=== PATIENT | male | born 1950 | race Caucasian/White ===

== ENCOUNTER 2019-08-11 01:23 | Inpatient (IN) ==
[2019-08-11] MEDS ORDERED: Naloxone 0.4 MG/ML INJ IVP PRN (03:42)
[2019-08-11] MEDS ORDERED: Acetaminophen 325 MG TABLET PO PRN (03:42)
[2019-08-11] MEDS ORDERED: *HR* Promethazine 25 MG/ML VIAL IVP PRN (03:42)
[2019-08-11] MEDS: 0.9 % Sodium Chloride 1,000 ML IVC SCH ×3 (04:49→19:51)
[2019-08-11 05:01] LABS: Bilirubin,Urine Negative (Negative); Blood,Urine Negative (Negative); Clarity,Urine Clear (Clear); Color,Urine Colorless (Yellow); Glucose,Urine (UA) Normal (Normal); Ketones,Urine Negative (Negative); Leukocyte Esterase,Urine Negative (Negative); Nitrite,Urine Negative (Negative); PH,Urine 5.5 pH Units (5.0-8.0); Protein,Urine Negative (Neg-Trace); Specific Gravity,Urine 1.015 (1.010-1.025); Urobilinogen,Urine Normal (Normal)
[2019-08-11 05:04] LABS: Basophils % 0.2 %; Hematocrit 49.9 % (37.5-50.1); Hemoglobin 14.5 g/dL (12.9-16.9); INR 1.7; Immature Granulocytes % 0.5 % (0-4); Lymphocytes # 0.3 K/mcL (0.6-4.6); Lymphocytes % 2.3 %; Mean Corpuscular HGB Conc 29.1 g/dL (31.6-35.5); Mean Corpuscular Hemoglobin 23.1 pg (28.0-33.3); Mean Corpuscular Volume 79.5 fL (83.0-100.0); Mean Platelet Volume 8.4 fL (9.4-12.4); Monocytes # 0.3 K/mcL (0.0-1.3); Platelet Count 420 K/mcL (140-400); Prothrombin Time 19.1 Seconds (9.4-12.1); Red Blood Count 6.28 M/mcL (4.19-5.50); White Blood Count 12.7 K/mcL (4.3-11.1)
[2019-08-11 05:20] LABS: Alanine Aminotransferase 58 Units/L (7-52); Albumin 3.3 g/dL (3.5-5.7); Albumin/Globulin Ratio 0.9 (1.1-2.2); Alkaline Phosphatase 124 Units/L (34-104); Aspartate Amino Transferase 49 Units/L (13-39); BUN/Creatinine Ratio 33 (6-26); Bilirubin,Total 0.8 mg/dL (0.3-1.0); Blood Urea Nitrogen 46 mg/dL (8-23); Calcium 10.7 mg/dL (8.6-10.3); Carbon Dioxide 19 mEq/L (23-29); Chloride 102 mEq/L (98-107); Globulin 3.6 g/dL (2.4-3.5); Glucose 113 mg/dL (70-105); Magnesium 2.3 mg/dL (1.6-2.6); Osmolality,Calculated 293 (280-300); Phosphorous 4.8 mg/dL (2.7-4.5); Potassium 4.8 mEq/L (3.5-5.1); Sodium 135 mEq/L (136-145); Total Protein 6.9 g/dL (6.4-8.9); eGFR For African Americans > 60 (> 60); eGFR For Non-African Americans 51 (> 60)
[2019-08-11 05:40] LABS: Thyroid Stimulating Hormone 3.809 mcIU/mL (0.340-5.600)
[2019-08-11 05:46] LABS: Ferritin 65 ng/mL (20-250)
[2019-08-11 06:11] LABS: % Iron Saturation 7 % (20-55); Iron 23 mcg/dL (65-175); Transferrin 234 mg/dL (203-362)
[2019-08-11] MEDS: Azithromycin 500 MG in 0.9 % Sodium Chloride 250 ML IVPB SCH (07:37)
[2019-08-11] MEDS: MethylPREDNISolone 40 MG/ML VIAL IVP SCH ×3 (07:37→23:00)
[2019-08-11] MEDS: cefTRIAXone 1,000 MG in 0.9 % Sodium Chloride Mini Bag 100 ML IVPB SCH (17:42)
[2019-08-11] MEDS: *HR* Heparin 5,000 UNIT/ML VIAL SQ SCH (17:42)
[2019-08-12 03:33] LABS: Hematocrit 45.2 % (37.5-50.1); Hemoglobin 13.4 g/dL (12.9-16.9); Mean Corpuscular HGB Conc 29.6 g/dL (31.6-35.5); Mean Corpuscular Hemoglobin 22.7 pg (28.0-33.3); Mean Corpuscular Volume 76.6 fL (83.0-100.0); Mean Platelet Volume 8.3 fL (9.4-12.4); Platelet Count 360 K/mcL (140-400); Red Cell Distribution Width 20.9 % (11.5-14.5); White Blood Count 13.7 K/mcL (4.3-11.1)
[2019-08-12 03:52] LABS: Calcium 9.7 mg/dL (8.6-10.3); Potassium 4.5 mEq/L (3.5-5.1)
[2019-08-12] MEDS: 0.9 % Sodium Chloride 1,000 ML IVC SCH (03:55)
[2019-08-12] MEDS: *HR* Heparin 5,000 UNIT/ML VIAL SQ SCH ×2 (05:49→17:38)
[2019-08-12] MEDS: MethylPREDNISolone 40 MG/ML VIAL IVP SCH ×2 (09:15→17:38)
[2019-08-12] MEDS: Azithromycin 500 MG in 0.9 % Sodium Chloride 250 ML IVPB SCH (09:15)
[2019-08-12] MEDS: cefTRIAXone 1,000 MG in 0.9 % Sodium Chloride Mini Bag 100 ML IVPB SCH (17:38)
[2019-08-13 02:44] LABS: Hemoglobin 12.6 g/dL (12.9-16.9)
[2019-08-13 02:46] LABS: Hematocrit 42.8 % (37.5-50.1); Mean Corpuscular HGB Conc 29.4 g/dL (31.6-35.5); Mean Corpuscular Hemoglobin 23.2 pg (28.0-33.3); Mean Corpuscular Volume 78.7 fL (83.0-100.0); Mean Platelet Volume 8.2 fL (9.4-12.4); Platelet Count 298 K/mcL (140-400); Red Blood Count 5.44 M/mcL (4.19-5.50); Red Cell Distribution Width 20.9 % (11.5-14.5); White Blood Count 14.4 K/mcL (4.3-11.1)
[2019-08-13] MEDS: Levothyroxine 25 MCG TABLET PO SCH (06:29)
[2019-08-13] MEDS: MethylPREDNISolone 40 MG/ML VIAL IVP SCH ×2 (06:29→17:15)
[2019-08-13] MEDS: *HR* Heparin 5,000 UNIT/ML VIAL SQ SCH ×2 (06:29→17:15)
[2019-08-13] MEDS ORDERED: Gadolinium Contrast Agent (WT Based) IV PRN (08:04)
[2019-08-13] MEDS: Azithromycin 250 MG TABLET PO SCH (08:09)
[2019-08-13] MEDS: cefTRIAXone 1,000 MG in 0.9 % Sodium Chloride Mini Bag 100 ML IVPB SCH (17:16)
[2019-08-14 01:43] LABS: Basophils % 0.1 %; Monocytes % 7.1 %; Nucleated Red Blood Cells 0.1 /100 WBC (0)
[2019-08-14 01:44] LABS: Hematocrit 42.7 % (37.5-50.1); Hemoglobin 12.5 g/dL (12.9-16.9); Immature Granulocytes % 0.6 % (0-4); Lymphocytes # 0.5 K/mcL (0.6-4.6); Lymphocytes % 3.3 %; Mean Corpuscular HGB Conc 29.3 g/dL (31.6-35.5); Mean Corpuscular Hemoglobin 23.2 pg (28.0-33.3); Mean Corpuscular Volume 79.4 fL (83.0-100.0); Mean Platelet Volume 9.1 fL (9.4-12.4); Neutrophils # 12.6 K/mcL (1.6-8.9); Platelet Count 248 K/mcL (140-400); Red Blood Count 5.38 M/mcL (4.19-5.50); Red Cell Distribution Width 20.7 % (11.5-14.5); Segmented Neutrophils % 88.9 %; White Blood Count 14.2 K/mcL (4.3-11.1)
[2019-08-14 02:05] LABS: Calcium 9.8 mg/dL (8.6-10.3); Potassium 5.2 mEq/L (3.5-5.1)
[2019-08-14] MEDS: MethylPREDNISolone 40 MG/ML VIAL IVP SCH (06:17)
[2019-08-14] MEDS: *HR* Heparin 5,000 UNIT/ML VIAL SQ SCH ×2 (06:17→17:25)
[2019-08-14] MEDS: Levothyroxine 25 MCG TABLET PO SCH (06:17)
[2019-08-14] MEDS: Dexamethasone 4 MG/ML VIAL IVP SCH ×3 (09:18→20:29)
[2019-08-14] MEDS: Azithromycin 250 MG TABLET PO SCH (09:18)
[2019-08-14 14:35] LABS: Potassium 4.8 mEq/L (3.5-5.1)
[2019-08-14] MEDS: cefTRIAXone 1,000 MG in 0.9 % Sodium Chloride Mini Bag 100 ML IVPB SCH (17:25)
[2019-08-15 02:19] LABS: Basophils % 0.1 %; Eosinophils % 0.1 %; Hemoglobin 12.5 g/dL (12.9-16.9); Immature Granulocytes % 0.5 % (0-4); Lymphocytes # 0.5 K/mcL (0.6-4.6); Mean Corpuscular HGB Conc 29.1 g/dL (31.6-35.5); Mean Corpuscular Hemoglobin 23.1 pg (28.0-33.3); Mean Corpuscular Volume 79.5 fL (83.0-100.0); Mean Platelet Volume 9.2 fL (9.4-12.4); Monocytes # 1.4 K/mcL (0.0-1.3); Neutrophils # 13.5 K/mcL (1.6-8.9); Nucleated Red Blood Cells 0.2 /100 WBC (0); Platelet Count 210 K/mcL (140-400); Red Blood Count 5.41 M/mcL (4.19-5.50); Red Cell Distribution Width 20.9 % (11.5-14.5); Segmented Neutrophils % 87.3 %; White Blood Count 15.4 K/mcL (4.3-11.1)
[2019-08-15 02:22] LABS: INR 1.5; Prothrombin Time 17.3 Seconds (9.4-12.1)
[2019-08-15 02:38] LABS: BUN/Creatinine Ratio 50 (6-26); Blood Urea Nitrogen 67 mg/dL (8-23); Calcium 9.8 mg/dL (8.6-10.3); Carbon Dioxide 22 mEq/L (23-29); Chloride 110 mEq/L (98-107); Glucose 142 mg/dL (70-105); Osmolality,Calculated 312 (280-300); Potassium 4.8 mEq/L (3.5-5.1); Sodium 140 mEq/L (136-145); eGFR For African Americans > 60 (> 60); eGFR For Non-African Americans 53 (> 60)
[2019-08-15] MEDS: Dexamethasone 4 MG/ML VIAL IVP SCH ×4 (03:19→22:00)
[2019-08-15] MEDS: *HR* Heparin 5,000 UNIT/ML VIAL SQ SCH ×2 (06:35→17:57)
[2019-08-15] MEDS: Levothyroxine 25 MCG TABLET PO SCH (06:35)
[2019-08-15] MEDS ORDERED: Acetaminophen IV 1,000 MG/100 ML BAG IVPB ONE (08:35)
[2019-08-15] MEDS ORDERED: Ondansetron 4 MG/2 ML VIAL IVP ONE (08:35)
[2019-08-15] MEDS ORDERED: Ringers Solution, Lactated 1,000 ML IVC SCH (08:45)
[2019-08-15] MEDS ORDERED: *HR* EPINEPHrine 1 MG/10 ML SYRINGE INTRATRACH PRN (09:44)
[2019-08-15] MEDS ORDERED: *HR* EPINEPHrine 1 MG/10 ML SYRINGE ONE (09:53)
[2019-08-15] MEDS: Azithromycin 250 MG TABLET PO SCH (12:26)
[2019-08-15 23:31] LABS: Appearance of Body Fluid Hazy (Clear); Volume of Body Fluid 25 mL
[2019-08-16 01:28] LABS: Basophils % 0.1 %
[2019-08-16 01:30] LABS: Hematocrit 42.2 % (37.5-50.1); Hemoglobin 12.3 g/dL (12.9-16.9); Immature Granulocytes % 0.4 % (0-4); Lymphocytes # 0.3 K/mcL (0.6-4.6); Lymphocytes % 1.9 %; Mean Corpuscular HGB Conc 29.1 g/dL (31.6-35.5); Mean Corpuscular Volume 78.9 fL (83.0-100.0); Mean Platelet Volume 9.2 fL (9.4-12.4); Monocytes # 1.6 K/mcL (0.0-1.3); Monocytes % 8.7 %; Neutrophils # 15.9 K/mcL (1.6-8.9); Nucleated Red Blood Cells 0.1 /100 WBC (0); Platelet Count 190 K/mcL (140-400); Red Blood Count 5.35 M/mcL (4.19-5.50); Red Cell Distribution Width 20.7 % (11.5-14.5); Segmented Neutrophils % 88.9 %; White Blood Count 17.9 K/mcL (4.3-11.1)
[2019-08-16 01:49] LABS: BUN/Creatinine Ratio 53 (6-26); Blood Urea Nitrogen 65 mg/dL (8-23); Calcium 9.4 mg/dL (8.6-10.3); Carbon Dioxide 21 mEq/L (23-29); Chloride 111 mEq/L (98-107); Glucose 167 mg/dL (70-105); Osmolality,Calculated 314 (280-300); Potassium 4.5 mEq/L (3.5-5.1); Sodium 141 mEq/L (136-145); eGFR For African Americans > 60 (> 60); eGFR For Non-African Americans 58 (> 60)
[2019-08-16 02:27] LABS: Platelet Estimate Normal (Normal)
[2019-08-16] MEDS: Dexamethasone 4 MG/ML VIAL IVP SCH ×3 (03:00→15:34)
[2019-08-16] MEDS: Levothyroxine 25 MCG TABLET PO SCH (05:48)
[2019-08-16] MEDS: *HR* Heparin 5,000 UNIT/ML VIAL SQ SCH (05:48)
[2019-08-16] MEDS: Azithromycin 250 MG TABLET PO SCH (09:02)
[2019-08-16] MEDS ORDERED: Vancomycin 1,000 MG VIAL ONE (15:53)
[2019-08-16] MEDS ORDERED: Ethanol\\Acetic Acid\\Na Ace\\Ben 1,000 ML IRRIG.SOLN IR ONE (15:53)
[2019-08-16] MEDS ORDERED: Lidocaine -MPF 4% 5 ML AMPUL ONE (16:09)
[2019-08-16] MEDS ORDERED: *HR* Propofol 200 MG/20 ML VIAL IVP ONE (16:09)
[2019-08-16] MEDS ORDERED: Ondansetron 4 MG/2 ML VIAL ONE (16:09)
[2019-08-16] MEDS ORDERED: *HR* FentaNYL (PF) 100 MCG/2 ML VIAL ONE (16:09)
[2019-08-16] MEDS ORDERED: Dexamethasone 4 MG/ML VIAL ONE (16:09)
[2019-08-16] MEDS ORDERED: Lidocaine -MPF 2% 2 ML VIAL ONE (16:09)
[2019-08-16] MEDS ORDERED: ceFAZolin 2,000 MG in Water for inj. (sterile) 20 ML IVP ONE (16:13)
[2019-08-16] MEDS ORDERED: *HR* Etomidate 40 MG/20 ML VIAL IVP ONE (16:39)
[2019-08-16] MEDS ORDERED: *HR* PHENYLEPHRINE 1,000 MCG/10 ML SYRINGE IVP ONE (16:40)
[2019-08-16] MEDS ORDERED: *HR* HYDROmorphone (PF) 1 MG/ML SYRINGE IVP PRN (18:22)
[2019-08-16] MEDS ORDERED: *HR* Labetalol 20 MG/4 ML SYRINGE IVP PRN (18:22)
[2019-08-16] MEDS ORDERED: Ondansetron 4 MG/2 ML VIAL IVP PRN ×2 (18:22→19:40)
[2019-08-16] MEDS ORDERED: Ipratropium/Albuterol Neb 3 ML IH ONE (18:23)
[2019-08-16] MEDS ORDERED: Ringers Solution, Lactated 1,000 ML ONE (18:23)
[2019-08-16 18:47] LABS: Hematocrit 43.5 % (37.5-50.1); Hemoglobin 12.7 g/dL (12.9-16.9)
[2019-08-16] MEDS ORDERED: *HR* OxyCODONE Immed Rel 5 MG TABLET PO PRN (19:40)
[2019-08-16] MEDS ORDERED: Ringers Solution, Lactated 1,000 ML IVC SCH (19:40)
[2019-08-16] MEDS ORDERED: Sennosides 8.6 MG TABLET PO PRN (19:40)
[2019-08-16] MEDS ORDERED: *HR* FentaNYL (PF) 100 MCG/2 ML VIAL IVP PRN (19:40)
[2019-08-16] MEDS ORDERED: Naloxone 0.4 MG/ML INJ IVP PRN (19:40)
[2019-08-16] MEDS ORDERED: *HR* Promethazine 25 MG/ML VIAL IVP PRN (19:40)
[2019-08-16] MEDS ORDERED: MOM Conc 10 ML UD.LIQ PO PRN (19:40)
[2019-08-16] MEDS ORDERED: HYDROcodone BIT/Homatropine 5 MG TABLET PO PRN (19:40)
[2019-08-16] MEDS: Ascorbic Acid 500 MG TABLET PO SCH (20:07)
[2019-08-16] MEDS ORDERED: Dexamethasone 4 MG/ML VIAL IVP SCH (20:45)
[2019-08-16] MEDS: CeFAZolin 2 GM/120 ML BAG IVPB SCH (23:28)
[2019-08-17] MEDS: Dexamethasone 10 MG/ML VIAL IVP SCH ×4 (03:22→19:38)
[2019-08-17] MEDS: Levothyroxine 25 MCG TABLET PO SCH (05:24)
[2019-08-17] MEDS: Ascorbic Acid 500 MG TABLET PO SCH ×2 (09:01→16:26)
[2019-08-17] MEDS: Multivit/Ca/Min/Fe/FA 1 TAB TABLET PO SCH (09:01)
[2019-08-17] MEDS: Azithromycin 250 MG TABLET PO SCH (09:02)
[2019-08-17] MEDS ORDERED: *HR* OxyCODONE Immed Rel 5 MG TABLET PO PRN (09:14)
[2019-08-17] MEDS: CeFAZolin 2 GM/120 ML BAG IVPB SCH (09:20)
[2019-08-17] MEDS ORDERED: E-Z-HD (BARIUM SULF) SUSPENSION PO ONE (15:01)
[2019-08-17] MEDS ORDERED: E-Z-PAQUE (BARIUM SULF) SUSP 1 BOTTLE PO ONE (15:01)
[2019-08-17] MEDS: Aspirin Enteric Coated 81 MG Tablet PO SCH (16:25)
[2019-08-17] MEDS: Ringers Solution, Lactated 1,000 ML IVC SCH (19:23)
[2019-08-18] MEDS: Dexamethasone 10 MG/ML VIAL IVP SCH ×4 (02:18→21:18)
[2019-08-18] MEDS: Levothyroxine 25 MCG TABLET PO SCH (04:22)
[2019-08-18 07:27] LABS: Basophils % 0.1 %; Immature Granulocytes % 0.6 % (0-4); Red Cell Distribution Width 21.2 % (11.5-14.5)
[2019-08-18 07:29] LABS: Hematocrit 44.1 % (37.5-50.1); Hemoglobin 12.7 g/dL (12.9-16.9); Lymphocytes # 0.5 K/mcL (0.6-4.6); Lymphocytes % 2.7 %; Mean Corpuscular HGB Conc 28.8 g/dL (31.6-35.5); Mean Corpuscular Volume 79.9 fL (83.0-100.0); Mean Platelet Volume 9.7 fL (9.4-12.4); Monocytes # 1.5 K/mcL (0.0-1.3); Monocytes % 7.2 %; Platelet Count 162 K/mcL (140-400); Red Blood Count 5.52 M/mcL (4.19-5.50); Segmented Neutrophils % 89.4 %; White Blood Count 20.1 K/mcL (4.3-11.1)
[2019-08-18 07:44] LABS: BUN/Creatinine Ratio 56 (6-26); Blood Urea Nitrogen 64 mg/dL (8-23); Calcium 9.8 mg/dL (8.6-10.3); Carbon Dioxide 26 mEq/L (23-29); Chloride 109 mEq/L (98-107); Glucose 120 mg/dL (70-105); Osmolality,Calculated 314 (280-300); Potassium 5.1 mEq/L (3.5-5.1); Sodium 142 mEq/L (136-145); eGFR For African Americans > 60 (> 60); eGFR For Non-African Americans > 60 (> 60)
[2019-08-18 07:46] LABS: Platelet Estimate Normal (Normal)
[2019-08-18 07:48] LABS: Hypochromasia Present (Not Present)
[2019-08-18] MEDS: Ascorbic Acid 500 MG TABLET PO SCH ×2 (09:02→15:58)
[2019-08-18] MEDS: Aspirin Enteric Coated 81 MG Tablet PO SCH (09:03)
[2019-08-18] MEDS: Azithromycin 250 MG TABLET PO SCH (09:03)
[2019-08-18] MEDS: Multivit/Ca/Min/Fe/FA 1 TAB TABLET PO SCH (09:03)
[2019-08-18] MEDS: Ringers Solution, Lactated 1,000 ML IVC SCH (10:26)
[2019-08-18] MEDS: cefTRIAXone 1,000 MG in Water for inj. (sterile) 10 ML IVP SCH (15:57)
[2019-08-18] MEDS: Azithromycin 500 MG in 0.9 % Sodium Chloride 250 ML IVPB SCH (15:58)
[2019-08-18] MEDS: Acetaminophen IV 1,000 MG/100 ML BAG IVPB SCH (21:18)
[2019-08-19] MEDS: Acetaminophen IV 1,000 MG/100 ML BAG IVPB SCH ×2 (02:10→08:02)
[2019-08-19] MEDS: Dexamethasone 10 MG/ML VIAL IVP SCH ×4 (03:44→20:51)
[2019-08-19 04:09] LABS: Basophils % 0.1 %
[2019-08-19 04:11] LABS: Hematocrit 49.3 % (37.5-50.1); Hemoglobin 13.7 g/dL (12.9-16.9); Immature Granulocytes % 0.7 % (0-4); Lymphocytes # 0.5 K/mcL (0.6-4.6); Lymphocytes % 1.9 %; Mean Corpuscular HGB Conc 27.8 g/dL (31.6-35.5); Mean Corpuscular Hemoglobin 22.1 pg (28.0-33.3); Mean Corpuscular Volume 79.5 fL (83.0-100.0); Mean Platelet Volume 10.1 fL (9.4-12.4); Monocytes # 2.1 K/mcL (0.0-1.3); Monocytes % 7.7 %; Neutrophils # 24.9 K/mcL (1.6-8.9); Platelet Count 206 K/mcL (140-400); Red Cell Distribution Width 21.9 % (11.5-14.5); Segmented Neutrophils % 89.6 %; White Blood Count 27.8 K/mcL (4.3-11.1)
[2019-08-19 04:28] LABS: BUN/Creatinine Ratio 54 (6-26); Blood Urea Nitrogen 62 mg/dL (8-23); Calcium 9.5 mg/dL (8.6-10.3); Carbon Dioxide 28 mEq/L (23-29); Chloride 107 mEq/L (98-107); Glucose 114 mg/dL (70-105); Osmolality,Calculated 314 (280-300); Potassium 5.1 mEq/L (3.5-5.1); Sodium 143 mEq/L (136-145); eGFR For African Americans > 60 (> 60); eGFR For Non-African Americans > 60 (> 60)
[2019-08-19 04:56] LABS: Platelet Estimate Normal (Normal)
[2019-08-19] MEDS: Levothyroxine 25 MCG TABLET PO SCH (05:02)
[2019-08-19] MEDS: cefTRIAXone 1,000 MG in Water for inj. (sterile) 10 ML IVP SCH (07:54)
[2019-08-19] MEDS: Ascorbic Acid 500 MG TABLET PO SCH ×2 (08:04→19:42)
[2019-08-19] MEDS: Aspirin Enteric Coated 81 MG Tablet PO SCH (08:05)
[2019-08-19] MEDS: Multivit/Ca/Min/Fe/FA 1 TAB TABLET PO SCH (08:05)
[2019-08-19] MEDS ORDERED: E-Z-PAQUE (BARIUM SULF) SUSP 1 BOTTLE PO ONE (14:31)
[2019-08-19] MEDS ORDERED: Acetaminophen 650 MG RECTAL SUPP RC PRN (14:40)
[2019-08-19] MEDS: Ringers Solution, Lactated 1,000 ML IVC SCH (16:17)
[2019-08-19] MEDS: Azithromycin 500 MG in 0.9 % Sodium Chloride 250 ML IVPB SCH (16:18)
[2019-08-19] MEDS ORDERED: Saliva Stimulant 100ml BOTTLE PO PRN (16:57)
[2019-08-20] MEDS: Dexamethasone 10 MG/ML VIAL IVP SCH ×2 (03:20→07:53)
[2019-08-20] MEDS: Levothyroxine 25 MCG TABLET PO SCH ×2 (05:37→07:51)
[2019-08-20] MEDS: cefTRIAXone 1,000 MG in Water for inj. (sterile) 10 ML IVP SCH (07:54)
[2019-08-20] MEDS ORDERED: Ascorbic Acid 500 MG TABLET GTUBE SCH (08:00)
[2019-08-20] MEDS ORDERED: Docusate Oral Soln 100 MG/10 ML UDC GTUBE SCH (09:00)
[2019-08-20] MEDS ORDERED: Multivit/Ca/Min/Fe/FA 1 TAB TABLET GTUBE SCH (09:00)
[2019-08-20] MEDS ORDERED: Aspirin 81 MG TAB.CHEW GTUBE SCH (09:00)
[2019-08-20 11:53] VITALS: BP 112/73
[2019-08-20 12:22] LABS: Basophils # 0.1 K/mcL (0.0-0.2); Basophils % 0.2 %; Hematocrit 46.9 % (37.5-50.1); Hemoglobin 13.9 g/dL (12.9-16.9); Immature Granulocytes % 0.7 % (0-4); Lymphocytes # 0.5 K/mcL (0.6-4.6); Lymphocytes % 1.4 %; Mean Corpuscular HGB Conc 29.6 g/dL (31.6-35.5); Mean Corpuscular Hemoglobin 23.4 pg (28.0-33.3); Mean Corpuscular Volume 78.8 fL (83.0-100.0); Mean Platelet Volume 10.3 fL (9.4-12.4); Monocytes # 1.7 K/mcL (0.0-1.3); Monocytes % 5.1 %; Neutrophils # 30.5 K/mcL (1.6-8.9); Platelet Count 157 K/mcL (140-400); Red Blood Count 5.95 M/mcL (4.19-5.50); Red Cell Distribution Width 22.4 % (11.5-14.5); Segmented Neutrophils % 92.6 %
[2019-08-20 12:26] LABS: White Blood Count 32.9 K/mcL (4.3-11.1)
[2019-08-20] MEDS ORDERED: Dexamethasone 10 MG/ML VIAL IVP SCH (18:00)
[2019-08-20] MEDS ORDERED: Pantoprazole 40 MG VIAL IVP SCH (18:00)
== END 2019-08-20 20:15 | disposition expired | DRG 981 ==
LOC: 2NENU → SUATTDRO 14:37 → 2ANU 08-12 20:29 → 3NENU 08-16 19:38
PROVIDERS: ADMIT Student in an Organized Health Care Education/Training Program; ATTEND Internal Medicine